=== PATIENT | female | born 1970 | race Hispanic/Latino ===

== ENCOUNTER 2021-02-16 18:11 | Emergency (ER) | payer SELFPAY ==
[~2021-02-16] VITALS: Ht 154.9 cm; Wt 73.5 kg
[2021-02-16 18:13] VITALS: BP 145/85
== END 2021-02-16 20:20 | disposition left against medical advice (07) ==
LOC: EDH 18:11
DX: R30.9 Painful micturition, unspecified (principal); Z53.21 Procedure and treatment not carried out due to patient leaving prior to being seen by health care provider